=== PATIENT | female | born 2000 | race Caucasian/White ===

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

== ENCOUNTER 2022-02-03 05:58 | Emergency (ER) | payer OTHER, SELFPAY ==
--- NOTE | ~2022-02-03 | XR_ITS ---
EXAMINATION: XR CHEST CLINICAL INFORMATION: Right-sided chest pain. COMPARISON: Chest done on 05/18/2021. TECHNIQUE: Frontal view of the chest was obtained. FINDINGS: No significant abnormality is noted involving the heart, lungs, mediastinum, bony thorax or soft tissues. XR/XR chest 1V IMPRESSION: Unremarkable examination. No significant change since prior study.
--- NOTE | ~2022-02-03 | NM_ITS ---
PULMONARY PERFUSION ONLY STUDY: CLINICAL INDICATION: Right-sided pleuritic chest pain and negative chest x-ray. PROCEDURE: Following the intravenous administration of 4.0 millicuries technetium 99m MAA, images of the chest were obtained in multiple projections using a gamma scintiphotographic camera. COMPARISON: Chest radiograph done earlier today. PERFUSION IMAGES: No segmental perfusion defects or other perfusion abnormalities are noted. NM/NM pul perfusion IMPRESSION: Based on perfusion only modified PIOPED 2 criteria, pulmonary thromboembolism is absent.
[2022-02-03 06:04] VITALS: BP 101/70; PULSE 120; RESP 24; TEMP 36.6; O2SAT 100; BMI 23.7
--- NOTE | 2022-02-03 06:39 | ED_ITS ---
HPI - SOB/Dyspnea General Chief Complaint: General Medical Stated Complaint: asthmatic, sob, R side pain Time Seen by Provider: 02/03/22 06:38 Source: patient Mode of arrival: ambulatory Limitations: no limitations History of Present Illness HPI Narrative: 21 yo female with hx of asthma not on OCPs comes in with R sided sharp pleuritic chest pain since yesterday denies trauma recent travel or recent cold/infections MD elicited complaint: shortness of breath, pain with inspiration and chest pain Pertinent past history: asthma Onset (ago): day(s) (1) Timing: constant Severity: severe Exacerbating factors: movement, coughing and inspiration Relieving factors: nothing Known history of: asthma Associated symptoms: chest pain and pain with inspiration Treatment prior to arrival: none Related Data Previous Rx's Medication Instructions Recorded cyclobenzaprine 10 mg tablet 10 mg PO TID PRN #14 tab 02/03/22 ibuprofen 600 mg tablet 600 mg PO Q6H PRN #30 tab 02/03/22 ondansetron 4 mg disintegrating 4 mg PO Q8H PRN #20 tab 02/03/22 tablet prednisone 20 mg tablet 40 mg PO DAILY 5 Days #10 tab 02/03/22 Allergies Allergy/AdvReac Type Severity Reaction Status Date / Time No Known Allergies Allergy Verified 02/03/22 06:07 Review of Systems Review of Systems: Constitutional : No Weight loss, No Fever, No Chills ENT/Mouth : No sore throat, No Rhinorrhea Eyes: No Eye Pain, No Swelling Cardiovascular : pos Chest Pain, pos SOB, no Dyspnea on Exertion, No Orthopnea, No Edema, No Palpitations Respiratory : No Cough, No Sputum Gastrointestinal : no Nausea, No Vomiting, No Diarrhea, No abdominal Pain, No Hematochezia, No Melena Genitourinary : No Dysuria, No Urinary Frequency Musculoskeletal : No joint pain, No Myalgias, No Joint Swelling Skin : No Skin Lesions, No rash Neuro : No Weakness, No Numbness, No Dizziness, No Headache Psych : No Anxiety/Panic, No Depression Heme/Lymph: No Bruising, No Lymphadenopathy Endocrine : No Polyuria, No Polydipsia All other systems reviewed and are negative PMFSH Past Medical History Attestation statement: The following information was validated with the patient. Medical History Asthma Social History Social History (Updated 02/03/22 @ 07:23 by Mary Carmen Brown DO) Patient Tobacco Use Status: Current someday Tobacco user Advance Directives: No Advance Directives Information Provided: Yes Physical Exam Vital Signs: Vital Signs: Last Vital Signs Temp 97.9 F 02/03/22 06:04 Pulse 64 02/03/22 11:26 Resp 16 02/03/22 11:26 BP 93/57 L 02/03/22 11:26 Pulse Ox 99 02/03/22 11:26 BMI result Body Mass Index 23.7 Appearance: Alert. Oriented X3. No acute distress. Eyes: Pupils equal, round and reactive to light. ENT: Pharynx normal. Neck: Normal inspection. Neck supple. CVS: Normal heart rate and rhythm. Pulses normal. Respiratory: No respiratory distress. Breath sounds normal. splinting R side Abdomen: Soft and nontender. Skin: Skin warm and dry. Normal skin color. Normal skin turgor. Extremities: No lower extremity edema. No calf ttp Neuro: Oriented X 3. No motor deficit. No sensory deficit. Course Course Course Narrative: ddimer elevated VQ scan ordered VQ scan negative for PE, ddimer high not on OCPs, HR 64 on recheck no hypoxia MDM - SOB/Dyspnea MDM Narrative Medical decision making narrative: 21 yo female with hx of asthma comes in with pleuritic chest pain R sided and splinting she is not on OCPs and denies recent illness - at this time given HR and pleuritic chest pain will need EKG, CXR, troponin, ddimer, IV toradol for pain possible PE/pneumonia/pleurisy. Dispo per results and findings. Lab Data Result diagrams: 02/03/22 07:54 02/03/22 07:54 Labs: Lab Results 02/03/22 02/03/22 02/03/22 Range/Units 07:54 07:54 07:54 WBC 9.5 (4.8-10.8) X10*3/uL RBC 4.12 L (4.20-5.50) X10*6/uL Hgb 12.9 (12.0-16.0) g/dl Hct 38.1 (37.0-47.0) % MCV 92.5 (80.0-98.0) fL MCH 31.3 (27.0-33.0) pg MCHC 33.9 (31.0-35.0) g/dl RDW 11.8 (11.0-16.0) % Plt Count 217 (160-400) X10*3/uL MPV 9.9 (9.4-12.3) fL Immature Gran % (Auto) 0.6 H (0.0-0.4) % Neut % (Auto) 76.0 H (45-73) % Lymph % (Auto) 16.5 L (20-40) % Isabel[place] % (Auto) 6.5 (2-11) % Eos % (Auto) 0.3 (0-4) % Baso % (Auto) 0.1 (0-2) % Lymph # (Auto) 1.6 (1.2-4.9) X10*3/uL [place] # (Auto) 0.6 (0.1-1.2) X10*3/uL Eos # (Auto) 0.0 (0.0-0.4) X10*3/uL Baso # (Auto) 0.0 (0.0-0.2) X10*3/uL Abs Immat Gran (auto) 0.06 H (0.00-0.03) X10*3/uL Absolute Neuts (auto) 7.2 (2.0-8.3) x10*3/uL Absolute Nucleated RBC 0.000 (0.0-0.012) X10*3/uL Nucleated RBC % (auto) 0.0 (0.0-0.2) /100WBC D-Dimer High Sensitivty 808 NG/ML Sodium 139 (135-145) mmol/L Potassium 3.7 (3.3-5.1) mmol/L Chloride 103 (96-108) mmol/L Carbon Dioxide 27 (22-29) mmol/L Anion Gap 13 (12-20) BUN 11 (9-16) mg/dL Creatinine 0.71 (0.5-1.4) mg/dL Estim Creat Clear Calc 105.4 Estimated GFR > 60 Random Glucose 91 (60-115) mg/dL Calcium 9.0 (8.4-10.2) mg/dL Magnesium 2.3 (1.6-2.6) mg/dL Total Bilirubin 1.0 (0.0-1.0) mg/dL Direct Bilirubin 0.4 (0.0-0.5) mg/dL AST 15 (5-31) U/L ALT 10 (0-31) U/L Alkaline Phosphatase 59 D (39-117) U/L Troponin I High Sens (<3.5-17.0) ng/L Total Protein 7.3 (6.5-8.0) g/dL Albumin 4.3 (3.5-5.0) g/dL COVID-19 (RYLIE) (Negative) COVID-19 Clin Com 02/03/22 02/03/22 Range/Units 07:54 07:54 WBC (4.8-10.8) X10*3/uL RBC (4.20-5.50) X10*6/uL Hgb (12.0-16.0) g/dl Hct (37.0-47.0) % MCV (80.0-98.0) fL MCH (27.0-33.0) pg MCHC (31.0-35.0) g/dl RDW (11.0-16.0) % Plt Count (160-400) X10*3/uL MPV (9.4-12.3) fL Immature Gran % (Auto) (0.0-0.4) % Neut % (Auto) (45-73) % Lymph % (Auto) (20-40) % Isabela % (Auto) (2-11) % Eos % (Auto) (0-4) % Baso % (Auto) (0-2) % Lymph # (Auto) (1.2-4.9) X10*3/uL [place] # (Auto) (0.1-1.2) X10*3/uL Eos # (Auto) (0.0-0.4) X10*3/uL Baso # (Auto) (0.0-0.2) X10*3/uL Abs Immat Gran (auto) (0.00-0.03) X10*3/uL Absolute Neuts (auto) (2.0-8.3) x10*3/uL Absolute Nucleated RBC (0.0-0.012) X10*3/uL Nucleated RBC % (auto) (0.0-0.2) /100WBC D-Dimer High Sensitivty NG/ML Sodium (135-145) mmol/L Potassium (3.3-5.1) mmol/L Chloride (96-108) mmol/L Carbon Dioxide (22-29) mmol/L Anion Gap (12-20) BUN (9-16) mg/dL Creatinine (0.5-1.4) mg/dL Estim Creat Clear Calc Estimated GFR Random Glucose (60-115) mg/dL Calcium (8.4-10.2) mg/dL Magnesium (1.6-2.6) mg/dL Total Bilirubin (0.0-1.0) mg/dL Direct Bilirubin (0.0-0.5) mg/dL AST (5-31) U/L ALT (0-31) U/L Alkaline Phosphatase (39-117) U/L Troponin I High Sens < 3.5 (<3.5-17.0) ng/L Total Protein (6.5-8.0) g/dL Albumin (3.5-5.0) g/dL COVID-19 (RYLIE) Negative (Negative) COVID-19 Clin Com See Note ECG Data Attestation: I personally reviewed and interpreted this ECG as follows: ECG interpretation date: 02/03/22 ECG interpretation time: 08:15 Interpretation: Rate: 86 Rhythm: NSR [place]: normal Normal P waves. Normal NAZARIO. Normal QRS complex. ST T wave : no ALLAN, nonspecific qTC: normal prior studies: no acute ischemia The study has been interpreted contemporaneously by me. Discharge Plan Discharge Clinical Impression: Chest pain, pleuritic, Pleurisy Patient Disposition: Home, Self-Care Instructions: Chest Pain (ED), Pleurisy (ED) Additional Instructions: return to ED for any worsening symptoms or concerns normal chest xray no evidence of blood clot today on exam Prescriptions: New cyclobenzaprine 10 mg tablet 10 mg PO TID PRN (Reason: muscle spasm) Qty: 14 0RF prednisone 20 mg tablet 40 mg PO DAILY 5 Days Qty: 10 0RF ibuprofen 600 mg tablet 600 mg PO Q6H PRN (Reason: pain) Qty: 30 0RF ondansetron 4 mg tablet,disintegrating 4 mg PO Q8H PRN (Reason: nausea and vomiting) Qty: 20 0RF Stand Alone Forms: Work/School Release Interventions: ED Discharge Assessment Last Done: 02/03/22 11:38 Discharge Date/Time: 02/03/22 11:39
--- NOTE | 2022-02-03 06:58 | PC.NURSE ---
report given to RAYMUNDO Mensah
--- NOTE | 2022-02-03 07:06 | ECG_ITS ---
Test Reason : cp Blood Pressure : / mmHG Vent. Rate : 086 BPM Atrial Rate : 086 BPM P-R Int : 146 ms QRS Dur : 074 ms QT Int : 342 ms P-R-T Axes : 048 045 005 degrees QTc Int : 409 ms Normal sinus rhythm Normal ECG When compared with ECG of 18-MAY-2021 17:40, No significant change was found Referred By: Mary Carmen Brown Electronically Signed By:Mikal Mathis
[2022-02-03] MEDS: Ketorolac Tromethamine 15 MG/ML VIAL 30 MG IVPUSH (07:55)
[2022-02-03 08:06] LABS: MANUAL DIFF FLAG NO
[2022-02-03 08:08] LABS: Basophils Percent Auto 0.1 % (0-2); Eosinophils Percent Auto 0.3 % (0-4); Hematocrit 38.1 % (37.0-47.0); Hemoglobin 12.9 g/dl (12.0-16.0); Imm Gran Abs Auto 0.06 X10*3/uL (0.00-0.03); Imm Gran Pct Auto 0.6 % (0.0-0.4); Lymphocytes Absolute Auto 1.6 X10*3/uL (1.2-4.9); Lymphocytes Percent Auto 16.5 % (20-40); Mean Corpuscular HGB Conc 33.9 g/dl (31.0-35.0); Mean Corpuscular Hemoglobin 31.3 pg (27.0-33.0); Mean Corpuscular Volume 92.5 fL (80.0-98.0); Mean Platelet Volume 9.9 fL (9.4-12.3); Monocytes Absolute Auto 0.6 X10*3/uL (0.1-1.2); Monocytes Percent Auto 6.5 % (2-11); Neutrophils Absolute Auto 7.2 x10*3/uL (2.0-8.3); Platelet Count 217 X10*3/uL (160-400); Red Blood Count 4.12 X10*6/uL (4.20-5.50); Red Cell Distribution Width 11.8 % (11.0-16.0); White Blood Count 9.5 X10*3/uL (4.8-10.8)
[2022-02-03 08:15] LABS: D Dimer High Sensitivity 808 NG/ML
[2022-02-03 08:23] LABS: COVID-19 Test Negative (Negative); IDNOW Serial# 55D5AD1C
[2022-02-03 08:33] LABS: Alanine Aminotransferase 10 U/L (0-31); Albumin Level 4.3 g/dL (3.5-5.0); Alkaline Phosphatase 59 U/L (39-117); Anion Gap 13 (12-20); Aspartate Amino Transferase 15 U/L (5-31); Bilirubin Direct 0.4 mg/dL (0.0-0.5); Blood Urea Nitrogen 11 mg/dL (9-16); Carbon Dioxide 27 mmol/L (22-29); Chloride 103 mmol/L (96-108); Creatinine Clr Calc Pharmacy 105.4; Estimated Glomerular Filt Rate > 60; Glucose Random 91 mg/dL (60-115); Magnesium 2.3 mg/dL (1.6-2.6); Potassium 3.7 mmol/L (3.3-5.1); Sodium 139 mmol/L (135-145); Total Protein 7.3 g/dL (6.5-8.0)
[2022-02-03 08:37] LABS: Troponin-I High Sensitivity < 3.5 ng/L (<3.5-17.0)
[2022-02-03 11:26] VITALS: BP 93/57; PULSE 64; RESP 16; O2SAT 99
== END 2022-02-03 11:39 | disposition home or self-care (01) ==
PROVIDERS: Emergency Provider Emergency Medicine; PCP Pediatrics
DX: R07.89 Other chest pain (principal); R09.1 Pleurisy; Z20.822 Contact with and (suspected) exposure to COVID-19; J45.909 Unspecified asthma, uncomplicated
CPT/HCPCS: 71045; 78580; 80048; 80076; 83735; 84484; 85025; 85379; 87635; 93005; 96374; 96375; 99284; A9540; J1885

== ENCOUNTER 2025-01-04 16:59 | Emergency (ER) | payer MEDICAID, SELFPAY ==
[2025-01-04 18:13] VITALS: BP 105/41; PULSE 74; RESP 16; TEMP 36.6; O2SAT 99; BMI 34.4
--- NOTE | 2025-01-04 18:19 | ED_ITS ---
HPI - General Adult General Chief complaint: Dental/Oral Stated complaint: Dental pain Time Seen by Provider: 01/04/25 18:19 Source: patient History of Present Illness ED Provider: Ankit Doan HPI narrative: 24 yold female healthy presents to the ED for left upper molar pain that cracked a month ago and now is painful. patient denies any facial swelling, drooling, change in voice, neck swelling, chest pain, shortness of breath, chest pain, shortness of breath, or recent dental work. Patient states no other complaints. Related Data Previous Rx's ?Medication ?Instructions ?Recorded cyclobenzaprine 10 mg tablet 10 mg PO TID PRN muscle spasm #14 02/03/22 tabs ibuprofen 600 mg tablet 600 mg PO Q6H PRN pain #30 tabs 02/03/22 ondansetron 4 mg disintegrating 4 mg PO Q8H PRN nausea and 02/03/22 tablet vomiting #20 tabs prednisone 20 mg tablet 40 mg (2 x 20 mg) PO DAILY 5 days 02/03/22 #10 tabs amoxicillin 875 mg-potassium 1 tab PO Q12H 10 days #20 tabs 01/04/25 clavulanate 125 mg tablet naproxen 500 mg tablet 500 mg PO BID PRN pain #14 tabs 01/04/25 Allergies Allergy/AdvReac Type Severity Reaction Status Date / Time No Known Allergies Allergy Verified 01/04/25 18:15 Review of Systems 2 Review of Systems: left upper dental pain. Yes all other systems are reviewed and are negative PMFSH Past Medical History Medical History Asthma Social History Social History (Updated 02/03/22 @ 07:23 by Livia Brown DO) Patient Tobacco Use Status: Current someday Tobacco user Advance Directives: No Advance Directives Information Provided: No Physical Exam ED Vital Signs: Vital Signs - 24 hr 01/04/25 18:13 Temperature 98 F Pulse Rate 74 Respiratory Rate 16 Blood Pressure 105/41 L Pulse Oximetry 99 Oxygen Delivery Method Room Air BMI result Body Mass Index 34.4 Const General: cooperative, healthy appearing, comfortable, no acute distress, well developed, alert, awake and Physically active Orientation/consciousness: patient oriented x3 HENMT Head: Yes normal to inspection, Yes No palpable skull fracture present, Yes normocephalic and Yes atraumatic Ears: hearing grossly normal bilaterally, external ears normal, TM's normal bilaterally, TM normal on the right, TM normal on the left, EAC's normal, mastoids normal and no periauricular adenopathy Teeth image: 2 1. Cracked tooth with yellow pus collection. Negative for trismus, gum swelling,, erythema, active pus drainage. Rest of oral cavity normal. Throat: Yes posterior oropharynx normal, Yes tonsils normal and Yes uvula midline Eyes General: appearance normal, both eyes and all related structures Neck Neck: Yes normal visual inspection, Yes full ROM, Yes no lymphadenopathy, Yes no meningeal signs, Yes trachea midline, Yes supple, No anterior neck swelling and No tender Chest Chest palpation & inspection: normal inspection of the chest and normal palpation of entire chest wall Resp Effort & Inspection: normal respiratory effort and able to speak in complete sentences Auscultation: clear to auscultation bilaterally Cardio Jugular venous distension: no JVD Heart sounds: S1 normal heart sound present and S2 normal heart sound present GI Inspection: Yes normal to inspection Palpation (GI): Soft to palpation, not firm, nontender, no guarding and not rigid General: Yes no CVA tenderness Back/Spine/Pelvis Back: no CVA tenderness and No back tenderness Skin General skin exam: no rashes or lesions noted, elasticity normal and turgor normal Neuro General: patient oriented x3, gait normal, tone normal, moves all extremities, Normal light touch and pain sensation, no meningeal signs, no focal motor deficits, CN's II-XI intact bilaterally and normal sensation to monofilament Extrem General: Yes normal to inspection, Yes full ROM and Yes capillary refill normal Psych Appearance: grossly normal, well kempt and not disheveled Medical Decision Making Medical Decision Making MDM Narrative: 24 yold female presents to the ED for left upper molar toothache pain ever since she broke her tooth. Patient denies any facial swelling, drooling change in voice, trismusis, neck swelling, chest pain, or recent trauma. Physical exam positive for left upper molar cracked tooth with pus collection. Negative for any gum swelling or trismus. Patient will be discharged with antibiotics. Patient informed to follow up with her dentist. Patient explained worrisome signs and informed to return to the ED immediately. Not suspecting Octavio's angina, retropharyngeal abscess, peritonsillar abscess, osteomyelitis, cellulitis, epiglottitis, or any life-threatening etiology Differential Diagnosis Differential Diagnoses: The differential diagnosis associated with the presentation includes (Dental abscess, gum abscess, tooth fracture) Admission/Observation Consideration of admission/observation: Escalation of care including admission/observation considered Independent Historian Clinical information obtained from an independent historian. History obtained from or confirmed by: Other (patient) Prescription Management I considered prescription management with: Pain Medication and Antibiotic Discharge Plan Discharge Clinical Impression: Toothache, Cracked tooth Patient Disposition: Home, Self-Care Instructions: Toothache (ED) Additional Instructions: Return to the ED immediately for any drooling, change in voice, facial swelling, neck swelling, chest pain, shortness of breath, inability tolerate solid food/liquid, or any other concerning symptoms. Recommend follow up with primary care provider and dentist. Prescriptions: New amoxicillin-pot clavulanate 875-125 mg tablet 1 tab PO Q12H 10 Days Qty: 20 0RF naproxen 500 mg tablet 500 mg PO BID PRN (Reason: pain) Qty: 14 0RF No Action cyclobenzaprine 10 mg tablet 10 mg PO TID PRN (Reason: muscle spasm) Qty: 14 0RF prednisone 20 mg tablet 40 mg PO DAILY 5 Days Qty: 10 0RF ibuprofen 600 mg tablet 600 mg PO Q6H PRN (Reason: pain) Qty: 30 0RF ondansetron 4 mg tablet,disintegrating 4 mg PO Q8H PRN (Reason: nausea and vomiting) Qty: 20 0RF Stand Alone Forms: Work/School Release Interventions: ED Discharge Assessment Last Done: 01/04/25 18:59 Discharge Date/Time: 01/04/25 19:00 Print Language: Senegalese
[2025-01-04 18:59] VITALS: BP 110/78; PULSE 74; RESP 16; TEMP 36.6; O2SAT 99
--- OUTSIDE RECORDS SUMMARY | 2025-01-04 19:12 | XMS_ITS | Clinical Summary ---
Author Organization [employer] Address [address] [place] [address] Care Team Providers Care Client Account Manager Name Role Phone Unavailable Primary Care Provider Unavailabl e Encounters Date Type Department Care Team Description 12/15/2024 Population Health Risk Score [facility] ([facility]) Department [address] [place] [address] [place] [address] Provider, Population Health Generic from Last 3 Months Social History Tobacco Use Types Packs/Day Years Used Date Smoking Tobacco: Never Assessed Comments Unknown Sex and Gender Information Value Date Recorded Sex Assigned at Female 07/15/2022 10:19 AM EDT Legal Sex Female 10:19 AM EDT Gender Identity Female 07/15/2022 10:19 AM EDT Sexual Orientation Don't know 07/15/2022 10 :19 AM EDT Plan of Treatment Health Maintenance Due Date Last Done Comments Chlamydia and Gonorrhea Screening 2002 Depression Screening 2002 HIV Screening 2002 Alcohol/Substance Use Screening 2014 Tobacco Screening 2014 Hepatitis A Vaccines (2 of 2 - 2-dose series) 02/22/2016 08/23/2015 Family Planning (PISQ) 2017 Hepatitis C Screening 2020 Hepatitis B Vaccines (1 of 3 - 19+ 3-dose series) 2021 Pap Smear 2023 COVID-19 Vaccine ( season) 2024 02/03/2021, 01/12/2021 Influenza Vaccine (#1) 2024 , 07/18/2020, 06/24/2019, Additional history exists DTaP/Tdap/Td Vaccines (3 - Td or Tdap) 09/12/2033 09/12/2023, 03/11/2018 Zoster Vaccines (1 of 2) 2052 RSV Patients and Patients Aged 60 years or older (1 - 1-dose 75+ series) 2077 Meningococcal Vaccine Completed 08/01/2018 HPV Vaccines Completed 12/26/2023, 08/23/2015 HIB Vaccines Aged Out No longer eligi ble based on patient's age to complete this topic IPV Vaccines Aged Out No longer eligi ble based on patient's age to complete this topic Pneumococcal Vaccine: Pediatrics (0 to 5 Years) and At-Risk Patients (6 to 49) Years) Aged Out No longer eligible based on patient's age to complete this topic RSV under 20 months Aged Out No longe r eligible based on patient's age to complete this topic Rotavirus Vaccines Aged Out No longer eligible based on patient's age to complete this topic
== END 2025-01-04 19:00 | disposition home or self-care (01) ==
PROVIDERS: Emergency Provider Emergency Medicine
DX: K03.81 Cracked tooth (principal)
CPT/HCPCS: 99282; 99283